=== PATIENT | female | born 1995 | race Caucasian/White ===

== ENCOUNTER → 2016-12-21 | Outpatient (REF) | payer BC, OTHER ==
[~2016-12-21] MED LIST: MOTR200T44 PO; PRENTAB40 PO
== END ==
LOC: M LAB REF 17:36
PROVIDERS: ATTEND Advanced Practice Midwife
DX: Z12.4 Encounter for screening for malignant neoplasm of cervix (principal)

== ENCOUNTER → 2017-07-14 | Outpatient (REF) | payer OTHER | LOC: M SFHCLERA 18:03 | DX: J02.9 Acute pharyngitis, unspecified (principal) ==

== ENCOUNTER → 2018-01-10 | Outpatient (REF) | payer OTHER ==
[2018-01-12 17:43] LABS: FREE T4 0.83 NG/DL (0.76-1.46)
== END ==
LOC: M SFHCLERA 16:45
DX: R79.89 Other specified abnormal findings of blood chemistry (principal); R63.5 Abnormal weight gain
CPT/HCPCS: 84443

== ENCOUNTER → 2018-03-17 | Outpatient (REF) | payer OTHER ==
[2018-03-17 18:21] LABS: FREE T4 0.87 NG/DL (0.76-1.46); THYROID STIMULATING HORMONE 1.5 uIU/ML (0.358-3.740)
== END ==
LOC: M SFHCLERA 17:49
PROVIDERS: ATTEND Family Medicine
DX: R79.89 Other specified abnormal findings of blood chemistry (principal)

== ENCOUNTER → 2018-09-28 | Outpatient (CLI) | payer BC, SELFPAY ==
--- NOTE | 2018-09-28 07:49 | PFTRPT ---
Height: 64.00 Inches Weight: 198.00 Lbs BSA: 1.95 Diagnosis: R06.02 DATE OF PROCEDURE: 09/28/2018 ORDERED BY: Maria Del Rosario Ojeda Spirometry: Pre and post bronchodilator study of excellent technical quality. Forced vital capacity normal. FEV1 in proportion. Obstructive index is, therefore, normal. Flow Volume Loop: Expiratory limb of the flow volume loop is normal. No significant bronchodilator response identified. Lung Volumes: Total lung capacity mildly elevated. Residual volume generally in proportion. Diffusing Capacity: Diffusing capacity is normal. Hemoglobin: No hemoglobin available for correction. Airway Mechanics: Airway resistance and conductance are normal. IMPRESSION: Probably normal study. MTDD
== END ==
LOC: M CARPUL 07:03
PROVIDERS: ATTEND Nurse Practitioner Adult Health
DX: R06.02 Shortness of breath (principal)

== ENCOUNTER → 2019-07-20 | Outpatient (REF) | payer BC | LOC: M LAB 19:22 | PROVIDERS: ATTEND Obstetrics & Gynecology | DX: Z01.419 Encounter for gynecological examination (general) (routine) without abnormal findings (principal) ==

== ENCOUNTER → 2019-07-27 | Outpatient (REF) | payer BC | LOC: M SFHCPLAZ 14:59 | PROVIDERS: ATTEND Obstetrics & Gynecology | DX: Z32.01 Encounter for pregnancy test, result positive (principal) ==

== ENCOUNTER → 2019-07-30 | Outpatient (REF) | payer BC | LOC: M SFHCPLAZ 07:30 | PROVIDERS: ATTEND Obstetrics & Gynecology | DX: Z32.01 Encounter for pregnancy test, result positive (principal) ==

== ENCOUNTER → 2019-09-04 | Outpatient (REF) | payer BC ==
[2019-09-04 13:30] LABS: GLUCOSE CHALLENGE TEST 1 HOUR 163 MG/DL (LESS THAN 140)
[2019-09-04 13:34] LABS: HEMATOCRIT 36.5 % (36.0-47.0); MEAN CORPUSCULAR HEMOGLOBIN 30.8 pg (27.0-33.0); MEAN CORPUSCULAR HGB CONC 32.9 g/dl (32.0-36.5); MEAN CORPUSCULAR VOLUME 93.6 fl (80.0-96.0); PLATELET COUNT, AUTOMATED 281 10^3/uL (150-450); WHITE BLOOD COUNT 7.1 10^3/uL (4.0-10.0)
[2019-09-04 15:15] LABS: CHLAMYDIA DNA AMPLIFICATION NEGATIVE (NEGATIVE); GC DNA AMPLIFICATION NEGATIVE (NEGATIVE)
[2019-09-05 10:43] LABS: HEPATITIS C VIRUS ABY INDEX 0.1 INDEX (<0.8); HIV 1&2 SCREEN CENTAUR NEGATIVE (NEGATIVE)
== END ==
LOC: M PLALAB 09:40
PROVIDERS: ATTEND Advanced Practice Midwife
DX: O99.211 Obesity complicating pregnancy, first trimester (principal); Z3A.00 Weeks of gestation of pregnancy not specified

== ENCOUNTER → 2019-09-24 | Outpatient (CLI) | payer BC | LOC: M LAB 08:05 | PROVIDERS: ATTEND Advanced Practice Midwife | DX: Z34.81 Encounter for supervision of other normal pregnancy, first trimester (principal) ==

== ENCOUNTER 2019-10-05 08:53 | Emergency (ER) | payer BC ==
[~2019-10-05] VITALS: Ht 162.6 cm; Wt 95.5 kg
[2019-10-05 09:27] LABS: BASO % 0.2 % (0.0-1.0); EOS % 0.3 % (0.0-3.0); HEMATOCRIT 35.6 % (36.0-47.0); LYMPH # 1.5 10^3/uL (1.5-5.0); LYMPH % 15.9 % (24.0-44.0); MEAN CORPUSCULAR HEMOGLOBIN 30.8 pg (27.0-33.0); MEAN CORPUSCULAR HGB CONC 33.7 g/dl (32.0-36.5); MEAN CORPUSCULAR VOLUME 91.5 fl (80.0-96.0); MONO # 0.4 10^3/uL (0.0-0.8); MONO % 4.5 % (0.0-5.0); NEUTROPHILS # 7.5 10^3/uL (1.5-8.5); NEUTROPHILS % 78.4 % (36.0-66.0); PLATELET COUNT, AUTOMATED 280 10^3/uL (150-450); RED BLOOD COUNT 3.89 10^6/uL (4.00-5.40); WHITE BLOOD COUNT 9.5 10^3/uL (4.0-10.0)
[2019-10-05 10:12] LABS: BLOOD UREA NITROGEN 8 MG/DL (7-18); CALCIUM LEVEL 9.1 MG/DL (8.5-10.1); CARBON DIOXIDE LEVEL 25 MEQ/L (21-32); CHLORIDE LEVEL 107 MEQ/L (98-107); CREATININE FOR GFR 0.63 MG/DL (0.55-1.30); GLOMERULAR FILTRATION RATE > 60.0 (>60); GLUCOSE, FASTING 92 MG/DL (70-100); HCG, SERUM QUANTITATIVE 19600 MIU/ML; SODIUM LEVEL 134 MEQ/L (136-145)
--- NOTE | 2019-10-05 10:46 | REPVR ---
PROCEDURE INFORMATION: Exam: US , Limited Exam date and time: 10/05/2019 10:07 AM Age: 23 years old Clinical indication: Lmp or gestational age (in weeks): 14; Antepartum complications; Bleeding; ; Additional info: Vaginal bleeding 14 weeks TECHNIQUE: Imaging protocol: Real-time ultrasound of the maternal uterus with image documentation. Exam focused on the clinical indication. COMPARISON: US ANATOMY/OB COMPETE 05/21/2013 10:20 AM FINDINGS: Gestation: Single live intrauterine . heart rate: heart rate 149 bpm. Presentation: Variable position. Placenta: Posterior placenta. No previa. No abruption. 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 The IUP is located within the right uterine horn. The endometrium within the left uterine horn measures 14 mm in thickness. Cervix is closed measuring 3.2 cm in length. Right adnexa: Right ovary measures 4.1 x 2.5 x 3.7 cm and contains a 3.2 x 2.1 x 1.9 cm cyst, likely corpus luteum. There is duplex blood flow within the right ovary. Left adnexa: Left ovary is not visualized, obscured by bowel gas. Intraperitoneal space: No evidence of free fluid. IMPRESSION: 1. Single viable IUP with motion and cardiac activity identified. 2. 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 The IUP is located within the right uterine horn. 3. Posterior placenta. No previa. No abruption. Electronically signed by: Yordy Diop On 10/05/2019 10:46:19 AM
[2019-10-05 12:33] VITALS: BP 118/58
[2019-10-05 13:21] LABS: CHLAMYDIA DNA AMPLIFICATION NEGATIVE (NEGATIVE); GC DNA AMPLIFICATION NEGATIVE (NEGATIVE)
== END 2019-10-05 12:34 | disposition home or self-care (01) ==
LOC: M ED 08:53
DX: O26.851 Spotting complicating pregnancy, first trimester (principal); Z3A.14 14 weeks gestation of pregnancy; Z79.899 Other long term (current) drug therapy

== ENCOUNTER → 2019-10-18 | Outpatient (REF) | payer BC | LOC: M LAB REF 16:55 | PROVIDERS: ATTEND Advanced Practice Midwife | DX: Z34.82 Encounter for supervision of other normal pregnancy, second trimester (principal) ==

== ENCOUNTER → 2019-11-01 | Outpatient (CLI) | payer BC ==
--- NOTE | 2019-11-14 08:21 | REP ---
COMPLETE OBSTETRICAL ULTRASOUND: 11/01/19 CLINICAL: Anatomical evaluation. TECHNIQUE: Transabdominal obstetric ultrasound with color Doppler evaluation. FINDINGS: Ultrasound examination demonstrates a suspected bicornuate uterus with the fetus in the right cornua. Fetus in breech presentation demonstrating motion. Placenta noted posteriorly and grade 1 without evidence for placenta previa or abruption. Amniotic fluid volume is normal. The cervix measures 3.6cm in length and appears closed. No evidence for nuchal cord. Gestational age by current measurements 18 weeks 2 days with estimated date of delivery 04/01/20. HEART RATE: 165bpm HC/AC Ratio 1.11 Estimated weight: 230g (51st percentile) Anatomical assessment demonstrates normal cranium, choroid plexus, ventricles, cerebellum/posterior fossa, facial features, four chamber heart, diaphragm, stomach, three vessel cord/cord insertion, kidneys/bladder, and extremities. Limited evaluation of the cardiac ventricular outflow tracts and spine noted. IMPRESSION: 1. Single live intrauterine in breech presentation. Finding suggesting bicornuate uterus with the fetus developing in the right cornua. 2. Appropriate estimated weight and growth noted. 3. Limited evaluation of the cardiac ventricular outflow tracts and spine. Remainder of the anatomical assessment is complete and normal. MTDD
== END ==
LOC: M WHC 07:59
PROVIDERS: ATTEND Obstetrics & Gynecology
DX: O32.1XX0 Maternal care for breech presentation, not applicable or unspecified (principal); Z36.89 Encounter for other specified antenatal screening; Z3A.18 18 weeks gestation of pregnancy

== ENCOUNTER → 2019-11-08 | Outpatient (CLI) | payer BC | LOC: M LABSMTC 13:22 | PROVIDERS: ATTEND Pediatrics | DX: Z20.828 Contact with and (suspected) exposure to other viral communicable diseases (principal) | CPT/HCPCS: C9803; U0002 ==

== ENCOUNTER → 2019-11-22 | Outpatient (REF) | payer BC | LOC: M PLALAB 08:54 | PROVIDERS: ATTEND Obstetrics & Gynecology | DX: Z34.92 Encounter for supervision of normal pregnancy, unspecified, second trimester (principal) ==

== ENCOUNTER → 2019-12-11 | Outpatient (CLI) | payer BC | LOC: M LAB 08:41 | PROVIDERS: ATTEND Obstetrics & Gynecology | DX: Z34.92 Encounter for supervision of normal pregnancy, unspecified, second trimester (principal); Z3A.00 Weeks of gestation of pregnancy not specified ==

== ENCOUNTER → 2019-12-31 | Outpatient (CLI) | payer BC ==
--- NOTE | 2020-01-01 03:54 | REP ---
INDICATION: F/U ANTOMY COMPARISON: 11/01/2019 TECHNIQUE: Transabdominal obstetrical ultrasound with color Doppler evaluation. FINDINGS: Examination demonstrates a single live intrauterine in breech presentation developing within the right cornua (known bicornuate uterus). motion is identified by technologist. Placenta is noted posterior and grade 0 without evidence for placenta previa or abruption. Amniotic fluid volume is normal. Cervix measures 3.2 cm in length and appears closed.. Gestational age by LMP 26 weeks 5 days with EUNICE 04/02/2020. Gestational age by current measurements 26 weeks 4 days with EUNICE 04/03/2020. FHR equals 160 beats per minute. Estimated weight 963 grams (37thpercentile). Anatomical assessment demonstrates normal appearance to the spine and right cardiac ventricular outflow tract. Left cardiac ventricular outflow tract again limited in evaluation due to presentation. IMPRESSION: Single live intrauterine in breech presentation. Limited evaluation of the left cardiac ventricular outflow tract again noted due to positioning. <Electronically signed by Yordy Laura > 01/01/20 [id number]
== END ==
LOC: M WHC 08:40
PROVIDERS: ATTEND Obstetrics & Gynecology
DX: O32.1XX0 Maternal care for breech presentation, not applicable or unspecified (principal); Z3A.26 26 weeks gestation of pregnancy

== ENCOUNTER 2020-02-18 11:40 | Inpatient (IN) | payer BC ==
[~2020-02-18] VITALS: Ht 160 cm; Wt 105.8 kg
[2020-02-18 12:03] VITALS: BP 139/82
[2020-02-18] MEDS ORDERED: LACTATED RINGER'S 1000 ML IV ONE (13:15)
[2020-02-18] MEDS ORDERED: BETAMETHASONE SOLUSPAN 6MG/ML 5ML VIAL (J0702 PER 3MG) IM SCH (13:15)
[2020-02-18] MEDS ORDERED: LR 1,000 ML IV SCH ×2 (13:15→21:00)
[2020-02-18 13:16] LABS: MEAN CORPUSCULAR HEMOGLOBIN 29.1 pg (27.0-33.0); MEAN CORPUSCULAR HGB CONC 32.4 g/dl (32.0-36.5); MEAN CORPUSCULAR VOLUME 89.6 fl (80.0-96.0); PLATELET COUNT, AUTOMATED 278 10^3/uL (150-450); RED BLOOD COUNT 4.13 10^6/uL (4.00-5.40); WHITE BLOOD COUNT 12.8 10^3/uL (4.0-10.0)
--- NOTE | 2020-02-18 14:01 | HPEPDOC ---
Obstetrical History & Physical General Date of Admission 02/18/2020 Primary Care Physician: TOD ESTRELLA CNM History of Present Illness Louise is a 24 y/o at 33.5weeks today by LMP 06/27/19 and EUNICE 04/02/2020. She started care at [facility] in the first trimester. She was sent to L&D from the office today with decreased movement and a 5 minute deceleration to 50bpm not associated with contractions in the office today. Since her arrival today she has had 3 more prolonged decelerations to 80bpm. 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 Denies contractions, LOF, vaginal bleeding. Chief Complaint: Other (Prolonged decelerations, extended observation) Information Provided By: Patient Age: 24 : 2 Term: 1 Pre-term: 0 Abortions: 0 Livin Care Care: Good Care Dating Final EDC: Apr 02, 2020 Final EDC by: LMP LMP: June 27, 2019 1st Trimester Date: Aug 22, 2019 Weeks + Days: 7.2 EGA at Admission: 33.5 Antepartum Course Diagnos(e)s Bicornate Uterus, Fetus in Right Cornua Elevated 1hr GTT, normal 3hr GTT Height (inches): 63 Pre- weight (lbs.): 210 Admission Weight (lbs.): 233 Change in Weight (lbs.): 23 Past Medical History Past Obstetrical History : Past Obstetrical History: Primgravida Date of Delivery: Sep 08, 2013 Type of Delivery: Spontaneous Vaginal Del. Sex of : Female (6lb 13 oz.) Complications: Yes (vaginal septum removed during delivery with Dr. Arteaga) [employer] History: No pertinent history Past Medical History Medical History GERD Bicornate Uterus Surgical History: Gallbladder Family History Significant Family History: Cancer (Grandparents with Throat and Colon Cancer) Social History Marital Status: Family situation: Spouse/partner home (Alirio Huffman) Psychosocial History: No pertinent psych hx * Smoker: non-smoker Alcohol: Denies Drugs: denies Imunizations Tdap status: current Influenza Status: current Allergies Coded Allergies: No Known Allergies (Unverified , 10/05/19) Medications Scheduled Pnv No.95/Ferrous Fum/Folic AC ( Formula Tablet) 1 Tab Tab, 1 TAB PO DAILY Physical Examination Physical Examination GENERAL: Alert and oriented times three. ABDOMEN: Gravid and non-tender to touch. FETUS: Is breech by TAUS in office today by Dr. Lux. HEART RATE: Regular rate and rhythm. LUNGS: Clear to auscultation (CTA) bilaterally, regular rate, no accessory muscle use. EXTREMITIES: No edema. No clonus. Deep tendon reflexes (DTRs) + 2. No calf tenderness. Vital Signs/I&O Vital Signs Date Time Temp Pulse Resp B/P (MAP) Pulse Ox O2 Delivery O2 Flow Rate FiO2 02/18/20 12:03 97.8 58 20 139/82 (101) Laboratory Data 24H LABS Laboratory Tests 2 02/18/20 12:54: Nucleated Red Blood Cells % (auto) 0.0 CBC/BMP Laboratory Tests 02/18/20 12:54 Pertinent Laboratoy Data Blood Type: O+ RBC Antibody Screen: Negative HIV: Negative Hepatitis B: Negative Hepatitis C: Negative Rapid Plasma Reagin: Nonreactive Rubella: Immune Chlamydia/Gonorrhea: Negative Group B Streptococcus: Unknown Glucose Tolerance Test: 89 Diag/Inter Therapy 3hr GTT: 89/149/153/82 Anatomy Ultrasound Ultrasound Date: Nov 01, 2019 Placenta Location: Posterior Normal Anatomy: Yes (Spine and VOTs have suboptimal views despite follow up U/S) Steroid Therapy Steroid Therapy: Yes Date #1: Feb 18, 2020 Reason Prolonged Decelerations Assessment Heart Rate (FHR): 135 Variability: Moderate Accelerations: Positive Decelerations: Prolonged Tocometer Contractions: No Multi-drug resistant Organism: No history of MDRO Assessment/Plan Assessment IUP at 33.5 weeks Category 2 FHT, Prolonged Decelerations Breech presentation Bicornate uterus, fetus in right cornua GBS Unknown Plan Plan consulted on with Dr. Mancuso. Admit and orient to Labor and Delivery. Bathroom privileges. Diet: NPO. Group B Streptococcus (GBS) unknown. Labs and intravenous (IV) per unit protocol. COVID 19 swab per protocol. Continuous EFM. Counseled on Primary C/Section for Breech presentation, Consent obtained by Dr. Mancuso. Will continue to monitor. Lactated Ringers (LR): Bolus 1000 mL, then at 125 mL/hr. Betamethasone 12mg IM every 24hrs x2 doses. C-S as appropriate due to breech presentation TOD ESTRELLA CNM Feb 18, 2020 14:01
[2020-02-18 14:15] VITALS: BP 108/67
[2020-02-18 15:02] LABS: RSV AMPLIFICATION NEGATIVE (NEGATIVE)
[2020-02-18 16:08] VITALS: BP 106/63
--- NOTE | 2020-02-18 16:45 | REP ---
INDICATION: decreased movement and spontaneousl prolonged decels COMPARISON: 12/31/2019 TECHNIQUE: Transabdominal obstetrical ultrasound with color Doppler evaluation. FINDINGS: Examination demonstrates a single live intrauterine in breech presentation. motion is identified by technologist. Placenta is noted posterior and grade 1 without evidence for placenta previa or abruption. Amniotic fluid volume is normal. Cervix measures 4.6 cm in length and appears closed. Evidence for nuchal cord. OLIVERIO: 13.1 cm (8.2-24.7) Umbilical artery SD ratio: 2.88 (1.75-3.71).. IMPRESSION: Single live advanced gestation in breech presentation. Amniotic fluid volume is normal. Nuchal cord noted. <Electronically signed by Yordy Laura > 02/18/20 [id number]
[2020-02-18 17:35] VITALS: BP 111/53
--- NOTE | 2020-02-18 18:19 | IPNPDOC ---
Obstetrical Progress Note Date of Service Feb 18, 2020 Subjective No complaints. Objective Vital Signs Date Time Temp Pulse Resp B/P (MAP) Pulse Ox O2 Delivery O2 Flow Rate FiO2 02/18/20 16:08 98.1 57 18 106/63 (77) Assessment Heart Rate (FHR): 130 Variability: Moderate Accelerations: Positive Decelerations: Recurrant and Prolonged (multiple spontaneous prolonged decelerations lasting from 3 minutes to 6 minutes dipping into the 50's for FHR) Heart Rate Tracing: Category II Tocometer Contractions: No Sterile Vaginal Examination Postion/Presentation: Breech presentation Assessment and Plan Age: 24 : 2 Term: 1 Pre-term: 0 Abortions: 0 Livin EGA at Admission: 33.5 Status: Non-reassuring Anticipate: Section Additional Comments Patient's status reviewed with Dr. Mancuso. Reviewed prolonged deceleration and ultrasound. Ultrasound: see below. He recommends section tonight for persistent Category II tracing- remote from delivery. Anesthesia and neonatology notified. Parents notified of plan of care and agree with plan of care. Reviewed risks and alternatives available. Preparation for section to be made for 1930. NAME: BIRD ESCOTO DATE OF : 1995 AGE: 24 SEX: F REPORT #: [id number] [facility]: [facility] TECHNOLOGIST: [facility] DOCTOR: TOD ESTRELLA CNM Ordered for Date&Time: 02/18/20 1506 cc: [~ rep ct ivnm] Service Date&Time: 02/18/20 1635 EXAMINATION REQUESTED: Obs. Limited, OLIVERIO US REASON FOR PATIENT VISIT: MONITORING. REASON FOR EXAM/COMMENT: decreased movement and spontaneousl prolonged decels INDICATION: decreased movement and spontaneousl prolonged decels COMPARISON: 12/31/2019 TECHNIQUE: Transabdominal obstetrical ultrasound with color Doppler evaluation. FINDINGS: Examination demonstrates a single live intrauterine in breech presentation. motion is identified by technologist. Placenta is noted posterior and g rade 1 without evidence for placenta previa or abruption. Amniotic fluid volume is normal. Cervix measures 4.6 cm in length and appears closed. Evidence for nuchal cord. OLIVERIO: 13.1 cm (8.2-24.7) Umbilical artery SD ratio: 2.88 (1.75-3.71).. IMPRESSION: Single live advanced gestation in breech presentation. Amniotic fluid volume is normal. Nuchal cord noted. <Electronically signed by Yordy Laura > 02/18/20 [id number] TOD ESTRELLA CNM Feb 18, 2020 18:19
[2020-02-18] MEDS ORDERED: ceFAZolin SOD 2 GM in IV 1 EA IV ONE (18:30)
[2020-02-18] MEDS ORDERED: BICITRA 30ML SOLN UDC PO ONE (18:30)
[2020-02-18 19:06] VITALS: BP 114/57
[2020-02-18] MEDS ORDERED: MORPHINE PRES-FREE INJ 10 MG/10 ML VIAL (J2274) As Ordered ONE (19:26)
[2020-02-18] MEDS ORDERED: OXYTOCIN INJ 10 UNITS/ML VIAL (J2590) As Ordered ONE (19:27)
[2020-02-18] MEDS ORDERED: NALOXONE INJ 0.4MG/1ML VIAL (J2310 PER 1MG) IV PRN ×2 (19:50)
[2020-02-18] MEDS ORDERED: METOCLOPRAMIDE INJ 10MG/2ML VIAL (J2765 PER 1) IV PRN ×2 (19:50→21:00)
[2020-02-18] MEDS ORDERED: NALBUPHINE HCL 10 MG/ML AMP (J2300) IV PRN (19:50)
[2020-02-18] MEDS ORDERED: ONDANSETRON 4MG/2ML VIAL IV PRN ×2 (19:50→21:00)
[2020-02-18] MEDS ORDERED: diphenhydrAMINE 50MG/ML VIAL (J1200) IV PRN (19:50)
[2020-02-18] MEDS ORDERED: GLYCOPYRROLATE INJ 0.2 MG/ML 2 ML VIAL As Ordered ONE (19:54)
[2020-02-18] MEDS ORDERED: dexameTHASONE 4 MG/ML 1ML VIAL (J1100 PER 1MG) As Ordered ONE (20:18)
[2020-02-18] MEDS ORDERED: ONDANSETRON 4MG/2ML VIAL As Ordered ONE (20:18)
[2020-02-18] MEDS ORDERED: KETOROLAC 60MG 2ML VIAL As Ordered ONE (20:19)
[2020-02-18] MEDS ORDERED: METOCLOPRAMIDE INJ 10MG/2ML VIAL (J2765 PER 1) As Ordered ONE (20:27)
[2020-02-18] MEDS ORDERED: fentaNYL 100 MCG/2 ML INJECTION (J3010) IV PRN (21:00)
[2020-02-18] MEDS ORDERED: RHOGAM 300 MCG (1500 IU) INJ (J2790) IM SCH (21:00)
[2020-02-18] MEDS ORDERED: IBUPROFEN 600MG TAB PO PRN (21:00)
[2020-02-18] MEDS ORDERED: METHYLERGONOVINE MALEATE 0.2 MG TAB PO PRN (21:00)
[2020-02-18] MEDS ORDERED: ACETAMINOPHEN 500 MG TAB PO PRN (21:00)
[2020-02-18] MEDS ORDERED: MEASLES,MUMPS,RUBELLA VACCINE INJ (MMR-II) (90707) SC SCH (21:00)
[2020-02-18] MEDS ORDERED: BENZOCAINE 20% HEMORRHOIDAL OINTMENT 28GM TUBE TOP PRN (21:00)
[2020-02-18] MEDS ORDERED: DOCUSATE SODIUM 100MG CAPSULE PO PRN (21:00)
[2020-02-18] MEDS ORDERED: IBUPROFEN 800 MG TAB PO PRN (21:00)
[2020-02-18] MEDS ORDERED: KETOROLAC 30 MG/ML 1ML VIAL IV PRN (21:00)
[2020-02-18] MEDS ORDERED: PERCOCET 5MG/325MG TAB PO PRN (21:00)
[2020-02-18] MEDS ORDERED: ACETAMINOPHEN TAB 650MG DOSE (2X325MG) PO PRN (21:00)
[2020-02-18 21:09] LABS: CORD GAS ABE A -8.1; CORD GAS HCO3 A 21.6 MEQ/L; CORD GAS O2 SAT A 28.3 %; CORD GAS PCO2 A 63.7 mmHg; CORD GAS PH A 7.148 UNITS; CORD GAS PO2 A 18.3 mmHg; CORD GAS SBC A 16.6 MEQ/L; CORD GAS TCO2 A 23.5 MEQ/L
[2020-02-18 21:10] LABS: CORD GAS ABE V -7.3; CORD GAS HCO3 V 20.2 MEQ/L; CORD GAS O2 SAT V 47.3 %; CORD GAS PCO2 V 48.1 mmHg; CORD GAS PH V 7.241 UNITS; CORD GAS PO2 V 23.8 mmHg; CORD GAS SBC V 17.6 MEQ/L; CORD GAS TCO2 V 21.7 MEQ/L
--- NOTE | 2020-02-18 21:11 | ROOPDOC ---
[facility] Report Of Operation Report of Operation DATE OF PROCEDURE: 02/18/20 Report of operation Preoperative diagnosis: 33 5/7 weeks, recurrent bradycardia, breech Postoperative diagnosis: same Procedure: primary low transverse section. Surgeon: Ariela Givens M.D. Asst.: Rosemary Thurman CNM EBL: 600 ml. Urine output: 100 mL's. Findings: 4 lbs. 15 oz.female , 's 7 and 9 g bicornuate uterus with fetus in right horn, normal ovaries; nuchal cord x 1, chen breech, deformity of cord insertion into placenta, but not a true velamentous cord insertion Operative summary: Patient taken to the operating room where spinal anesthesia induced. She was prepped draped sterile fashion in the supine position. A Steiner catheter was placed. A Pfannenstiel skin incision was made with scalpel. Fascia was incised and extended bilaterally. The peritoneal cavity was entered. A Mobius retractor was placed. A bladder flap was created. A curvilinear incision was made in lower uterine segment until Clear fluid was noted. The incision was extended manually. The infant was delivered from the breech position without difficulty. Cord was double clamped and cut. The infant was handed waiting nurses. The placenta was expressed. Uterus was closed with O-Vicryl in a running locked fashion. A second imbricating layer of Vicryl was placed Peritoneum was closed with 2-0 Vicryl a running fashion. Fascia was closed with 0 Vicryl in running fashion. Skin was closed 4-0 Monocryl subcuticular sutures. Sponge, instrument and needle counts were correct. Rosemary Thurman CNM, assisted with all aspects of the procedure. She helped close each layer of the incision and deliver the fetus. ARIELA GIVENS MD Feb 18, 2020 21:11
[2020-02-18] MEDS ORDERED: OXYC1TAB23 PO (21:13)
[2020-02-18] MEDS ORDERED: IBUP80TA PO (21:15)
[2020-02-18] MEDS ORDERED: OXYTOCIN 30 UNITS IN 0.9% NaCl 500ML IV BAG (J2590) As Ordered ONE (21:15)
[2020-02-18] MEDS ORDERED: PERCOCET 5MG/325MG TAB As Ordered ONE (21:33)
[2020-02-18 22:40] VITALS: BP 120/59
[2020-02-19] MEDS ORDERED: BETAMETHASONE SOLUSPAN 6MG/ML 5ML VIAL (J0702 PER 3MG) IM SCH (01:15)
[2020-02-19 02:00] VITALS: BP 134/70
[2020-02-19 06:00] VITALS: BP 146/81
[2020-02-19] MEDS ORDERED: MEASLES,MUMPS,RUBELLA VACCINE INJ (MMR-II) (90707) SC SCH (08:15)
[2020-02-19] MEDS ORDERED: RHOGAM 300 MCG (1500 IU) INJ (J2790) IM SCH (08:15)
[2020-02-19] MEDS ORDERED: PERCOCET 5MG/325MG TAB PO PRN (08:15)
[2020-02-19] MEDS ORDERED: PRENATAL VITAMINS CHEWABLE TABLET PO SCH (09:00)
[2020-02-19 10:00] VITALS: BP 105/56
[2020-02-19] MEDS: PRENATAL VITAMINS CHEWABLE TABLET PO SCH (11:00)
[2020-02-19 14:00] VITALS: BP 120/58
[2020-02-19] MEDS: IBUPROFEN 800 MG TAB PO SCH ×2 (15:26→22:24)
[2020-02-19 18:00] VITALS: BP 125/59
[2020-02-19 22:00] VITALS: BP 120/62
[2020-02-20 02:00] VITALS: BP 118/63
--- NOTE | 2020-02-20 06:50 | IPNPDOC ---
Progress Note Date of Service: Feb 20, 2020 Day#: 2 Progress Note SUBJECT: Status post PLTCS She has been ambulating, voiding spontaneously without issue and tolerating regular diet. Lochia decreasing/minimal. Pain is well-controlled. Incision bandage is clean/unsaturated. OBJECTIVE: VITAL SIGNS: Within normal limits, afebrile. Alert and oriented times three. Abdomen: Fundus firm at U-2. Soft, NTTP. Incision bandage not soaked through ASSESSMENT: Status post uncomplicated PLTCS. Vitals within normal limits, af ebrile, hemodynamically stable with no evidence of infection. PLAN: Discharge to home tomorrow Routine /postoperative advancement Postoperative instructions/precautions reviewed. Routine PP visit at 2 and 6 weeks in clinic. VS, I&O, 24H, Fishbone Vital Signs/I&O Vital Signs Date Time Temp Pulse Resp B/P (MAP) Pulse Ox O2 Delivery O2 Flow Rate FiO2 02/20/20 03:28 18 Room Air 02/20/20 02:00 97.7 60 118/63 (81) 100 I&O- Last 24 Hours up to 6 AM 02/20/20 06:00 Output Total 450 ml Balance -450 ml DEBORAH WEBSTER DO Feb 20, 2020 06:50
[2020-02-20] MEDS: IBUPROFEN 800 MG TAB PO SCH ×3 (06:56→22:48)
[2020-02-20] MEDS: PRENATAL VITAMINS CHEWABLE TABLET PO SCH (08:57)
[2020-02-20 09:00] VITALS: BP 128/63
[2020-02-20 09:37] LABS: HEMATOCRIT 29.2 % (36.0-47.0); MEAN CORPUSCULAR HEMOGLOBIN 29.8 pg (27.0-33.0); MEAN CORPUSCULAR HGB CONC 31.8 g/dl (32.0-36.5); MEAN CORPUSCULAR VOLUME 93.6 fl (80.0-96.0); PLATELET COUNT, AUTOMATED 220 10^3/uL (150-450); RED BLOOD COUNT 3.12 10^6/uL (4.00-5.40); WHITE BLOOD COUNT 11.6 10^3/uL (4.0-10.0)
[2020-02-20 09:52] LABS: HEMOGLOBIN 9.3 g/dl (12.0-15.5)
[2020-02-20 14:00] VITALS: BP 130/63
[2020-02-20 18:00] VITALS: BP 136/78
[2020-02-20] MEDS: PERCOCET 5MG/325MG TAB PO PRN (19:51)
[2020-02-21] MEDS: IBUPROFEN 800 MG TAB PO SCH (05:42)
[2020-02-21 05:59] VITALS: BP 144/79
[2020-02-21] MEDS: PRENATAL VITAMINS CHEWABLE TABLET PO SCH (07:53)
[2020-02-21] MEDS: PERCOCET 5MG/325MG TAB PO PRN (12:50)
--- NOTE | 2020-02-22 12:47 | DSES ---
DISCHARGE SUMMARY DATE OF ADMISSION: 02/18/2020 DATE OF DISCHARGE: 02/21/2020 DISCHARGE DIAGNOSIS: 1. Postop day #3 primary section, stable condition. SURGEON: ARIELA GIVENS MD TRANSPORTATION PLANNER: TOD ESTRELLA CNM BRIEF HISTORY: Louise is a 24-year-old 2 para 1-1-0-2 now who underwent an urgent for no-reassuring heart rate in breech presentation at 33 and 5/7th weeks gestation. She was seen in the office with a complaint of decreased movement and noted to have prolonged deceleration on external monitoring, she was sent to Labor and Delivery and consented for surgery as the fetus continued to have prolonged decelerations. Of note, she had bicornuate uterus with fetus in the right cornua. She did receive one dose of betamethasone prior to delivery. Her surgery was uncomplicated. She delivered a 4 pound, 15 ounce female, Apgars were 7 and 9. Estimated blood loss 600 ml. She has been out of bed for self-care, meredith-care and visiting the NICU. Her pain has been well-managed with p.o. pain medications. She is voiding without difficulty, passing flatus. She desires discharge. OBJECTIVE: Temperature 98.9, pulse 72, respirations 18, blood pressure 144/79. She is alert and oriented x3. Her CBC preoperatively on 02/17/2019: Hemoglobin of 12, hematocrit 37, platelets 278,000. CBC on 02/19/2019: Hemoglobin 9.3, hematocrit 29.2 and platelets 220,000. Her breasts are soft, nontender. Nipples are intact. There are no cracks. Her fundus is firm at umbilicus. Her incision has dressing Optifoam in place, no new drainage. The perineum is intact with lochia, scant. Bilateral lower extremities with +2 pitting edema. PLAN: Discharge the patient to home today. Prescriptions have been sent to the patient's pharmacy by Dr. Ariela Givens. She is to follow-up at [facility] for a two week incision check and an eight week visit. I did review discharge instructions including breast care, incision care, meredith-care, pelvic rest, activity and lifting restrictions, access to care and other danger signs to report to her provider. The patient and her partner have had all of their questions answered and desired discharge today.
== END 2020-02-21 12:50 | disposition home or self-care (01) | DRG 540 ==
LOC: M LDO 11:40 → M LDI 13:38 → M OBS 22:45
PROVIDERS: ADMIT Advanced Practice Midwife; ATTEND Advanced Practice Midwife
PROC: 10D00Z1 Extraction of Products of Conception, Low, Open Approach (ICD-10-PCS; principal; 2020-02-18 19:30)
DX: O36.8330 Maternal care for abnormalities of the fetal heart rate or rhythm, third trimester, not applicable or unspecified (principal); Z3A.33 33 weeks gestation of pregnancy; Z37.0 Single live birth; O76 Abnormality in fetal heart rate and rhythm complicating labor and delivery; O32.1XX0 Maternal care for breech presentation, not applicable or unspecified; O69.81X0 Labor and delivery complicated by cord around neck, without compression, not applicable or unspecified; O69.89X0 Labor and delivery complicated by other cord complications, not applicable or unspecified